=== PATIENT | female | born 1950 | race Two or more races ===

== ENCOUNTER → 2023-06-01 | Outpatient (CLI) | payer MEDICARE, SELFPAY ==
--- NOTE | 2023-06-01 12:48 | VDLE_ITS ---
Reason For Study: LLE PAin RIGHT LEFT CFV is compressible, spontaneous, phasic, CFV is PARTIALLY COMPRESSIBLE, spontaneous, competent and demonstrates normal phasic, competent, and demonstrates normal augmentation. augmentation. Procedure Web like intraluminal echoes noted, This is a venous duplex using B-mode, color consistent with chronic DVT. flow and spectral Doppler. FV is PARTIALLY COMPRESSIBLE, spontaneous, Exam performed in department. phasic, competent, and demonstrates normal The exam was diagnostic. augmentation. Web like intraluminal echoes noted, consistent with chronic DVT. POP V is compressible, spontaneous, phasic, competent and demonstrates normal augmentation. T/P Trunk is compressible. PTV is compressible. LT PerV is compressible. SFJ is INCOMPETENT and measures 0.80 cm. GSV proximal thigh measures 0.36 x 0.36 cm. GSV at knee measures 0.32 x 0.40 cm. GSV INCOMPETENT throughout for greater than 0.5 seconds. SSV proximal calf is competent and measures 0.19 x 0.20 cm. ASV is DILATED and NONCOMPRESSIBLE from junction to distal though. Varicose Veins of distal thigh are DILATED and NONCOMPRESSIBLE. VL/Venous Duplex US, Unilateral Interpretation Summary Acute superficial vein thrombosis is noted in the left accessory saphenous vein and adjacent varicose veins. Chronic deep vein thrombosis noted in the left common femoral vein, femoral vei n, Positive for reflux in the left saphenofemoral junction, great saphenous vein. Ordering Physician: Jostin Thompson Referring Physician: Jostin Thompson Performed By: Linwood Diaz, RVT
== END | disposition home or self-care (01) ==
PROVIDERS: Referring Provider Surgery Trauma Surgery; Visit Provider Surgery Trauma Surgery
DX: I83.10 Varicose veins of unspecified lower extremity with inflammation (principal); Z86.718 Personal history of other venous thrombosis and embolism
CPT/HCPCS: 93971

== ENCOUNTER → 2024-02-03 | Outpatient (CLI) | payer MEDICARE, SELFPAY ==
--- NOTE | 2024-02-03 11:05 | US_ITS ---
STUDY: ULTRASOUND BREAST - LEFT REASON FOR EXAM: Female, 73 years old. Palpable lump in the lateral retroareolar region of the breast. TECHNIQUE: Axial and longitudinal images of the LEFT breast were performed with a high resolution ultrasound transducer. # OF IMAGES: 32 COMPARISON: None. FINDINGS: LEFT Breast: The retroareolar region of the left breast was examined with ultrasound. There is a 3 mm x 4 mm x 3 mm cyst in the retroareolar region of the breast. There is also evidence of a 7 mm x 5 mm x 3 mm cyst within the nipple. US/Breast Limited Unilateral IMPRESSION: Small cysts are seen in the retroareolar region of the left breast as well as within the nipple. ASSESSMENT CATEGORY: BIRADS Category 2: Benign. A letter regarding these results will be sent to the patient by the facility within 30 days. Electronically Signed: Karlos Muñoz MD at 13:44 EDT ,
== END | disposition home or self-care (01) ==
LOC: OPUS 11:04
PROVIDERS: PCP Family Medicine; Visit Provider Surgery
DX: R92.8 Other abnormal and inconclusive findings on diagnostic imaging of breast (principal); N63.20 Unspecified lump in the left breast, unspecified quadrant
CPT/HCPCS: 76642

== ENCOUNTER → 2024-03-14 | Outpatient (CLI) | payer MEDICARE, SELFPAY ==
--- NOTE | 2024-03-14 11:18 | MRI_ITS ---
STUDY: BILATERAL BREAST MR WITHOUT AND WITH CONTRAST REASON FOR EXAM: Female, 73 years old. Left nipple pain with drainage. TECHNIQUE: Multi-sequence multi-echo imaging of both breasts was performed with a dedicated breast coil. T1-weighted and T2-weighted images were performed before the administration of contrast. T1-weighted images were also performed after the intravenous administration of 17 mL of Clariscan contrast. COMPARISON: Prior left breast ultrasound dated February 03, 2024, left breast ultrasound dated June 02, 2023 and left diagnostic mammogram dated June 02, 2023. FINDINGS: RIGHT BREAST: Predominately fatty replacement with minimal background enhancement. No abnormal enhancing masses or areas of non-mass enhancement in the right breast. LEFT BREAST: Predominately fatty replacement with minimal background enhancement. In the subareolar region of the left breast there is a superficial enhancing partially circumscribed lobular lesion measuring 2 cm x 7 mm x 8 mm. Medial to this and adjacent to the areola is another superficial enhancing lobulated mass measuring 7 mm x 5 mm. These lesions are not seen on the prior left diagnostic mammogram dated June 02, 2023. Given the appearance of the superficial lesions, consideration should be given to ultrasound-guided biopsy or excision for histologic confirmation. No enlarged or abnormal lymph nodes. No abnormality in the visualized regions of the chest or liver. MRI/Breast Bilateral W/O and W IMPRESSION: Subareolar enhancing masses in the left breast as described above. Consideration should be given to ultrasound-guided biopsy/excision of these lesions for histologic examination. CATEGORY: BIRADS Category 4: Suspicious - Biopsy Should Be Considered. A letter regarding these results will be sent to the patient by the facility within 30 days. Electronically Signed: Matthew Curry MD at 15:40 EDT ,
[2024-03-14 11:54] LABS: CREATININE FINGERSTICK < 1.0 mg/dL (0.55-1.02)
== END | disposition home or self-care (01) ==
PROVIDERS: PCP Family Medicine; Referring Provider Surgery; Visit Provider Surgery
DX: Z01.812 Encounter for preprocedural laboratory examination (principal); N64.4 Mastodynia; N63.20 Unspecified lump in the left breast, unspecified quadrant
CPT/HCPCS: 77049; A9575; A4216; C8908